=== PATIENT | male | born 1985 | race Two or more races ===

== ENCOUNTER 2024-09-19 14:48 | Emergency (ER) | payer SELFPAY ==
[2024-09-19 19:17] LABS: BASOPHILS ABSOLUTE AUTO 0.03 K/uL (0.00-0.10); BASOPHILS PERCENT AUTO 0.4 % (0.1-1.3); EOSINOPHILS ABSOLUTE AUTO 0.08 K/uL (0.00-0.40); EOSINOPHILS PERCENT AUTO 1.1 % (0.0-5.4); HEMATOCRIT 38.7 % (38.4-49.7); HEMOGLOBIN 14.1 g/dL (12.9-16.9); IMMATURE GRAN PERCENT AUTO 0.3 % (0.0-0.7); LYMPHOCYTES PERCENT AUTO 27.2 % (11.4-47.7); MEAN CORPUSCULAR HEMOGLOBIN 30.4 pg (31.6-35.5); MEAN CORPUSCULAR HGB CONC 36.4 g/dL (31.6-35.5); MEAN CORPUSCULAR VOLUME 83.4 fL (81.4-99.0); MONOCYTES ABSOLUTE AUTO 0.41 K/uL (0.20-0.90); MONOCYTES PERCENT AUTO 5.6 % (3.3-12.6); NEUTROPHILS ABSOLUTE AUTO 4.82 K/uL (1.0-7.6); NEUTROPHILS PERCENT AUTO 65.4 % (40.0-78.1); PLATELET COUNT,PLT 242 K/uL (130-375); RED BLOOD CELL COUNT 4.64 M/uL (4.14-5.76); WHITE BLOOD CELL COUNT,WBC 7.4 K/uL (3.2-11.0)
[2024-09-19 19:21] LABS: IMMATURE GRAN ABSOLUTE AUTO 0.02 K/uL (0.00-0.23)
[2024-09-19] MEDS: Sodium Chloride 0.9% 1,000 ML IV SCH (19:45)
[2024-09-19 19:47] LABS: A/G RATIO 0.9 (1.2-2.2); ALBUMIN 3.7 g/dL (3.4-5.0); ALKALINE PHOSPHATASE 66 U/L (46-116); BILIRUBIN TOTAL 0.7 mg/dL (0.2-1.0); BLOOD UREA NITROGEN,BUN 18 mg/dL (7-18); CALCIUM 8.3 mg/dL (8.5-10.1); CARBON DIOXIDE,CO2 25 mmol/L (21-32); CHLORIDE,CL 103 mmol/L (100-108); CREATININE 0.9 mg/dL (0.8-1.3); EST CRCL DRUG DOSING (CG) 92.27 mL/min; ESTIMATED GFR 111 mL/min (>60); GLUCOSE RANDOM 131 mg/dL (74-106); POTASSIUM,K 3.9 mmol/L (3.6-5.2); PROTEIN TOTAL,TP 7.7 g/dL (6.4-8.2); SODIUM,NA 140 mmol/L (140-148); TSH ULTRASENSITIVE 4.336 uIU/mL (0.358-3.740)
[2024-09-19 20:03] LABS: C-REACTIVE PROTEIN < 0.50 mg/dL (<0.50)
[2024-09-19 20:45] LABS: ALANINE AMINOTRANSFERASE,ALT 74 U/L (12-78); ASPARTATE AMNIOTRANSFERASE,AST 32 U/L (15-37)
[2024-09-19] MEDS: Sodium Chloride 0.9% 80 ML IV SCH (21:21)
[2024-09-19] MEDS: Iopamidol 612 MG/ML 100 ML Bottle IV SCH (21:21)
[2024-09-19] MEDS: Alum Hydrox/Mag Hydrox/Simeth 15 ML, Lidocaine 2% 15 ML PO ONE (21:55)
[2024-09-19] MEDS: Acetaminophen 500 MG Tab PO ONE (22:24)
[2024-09-19] MEDS: diphenhydrAMINE 25 MG Cap PO ONE (22:25)
== END 2024-09-19 22:30 | disposition home or self-care (01) ==
LOC: JP.ED 14:48
DX: K21.9 Gastro-esophageal reflux disease without esophagitis (principal); E03.9 Hypothyroidism, unspecified
CPT/HCPCS: 36415; 74177; 80053; 83605; 83690; 84443; 85025; 86140; 96360; 99283; 99284-25; A9270-GY; J7030; Q9967

== ENCOUNTER 2025-04-05 18:46 | Emergency (ER) | payer OTHER | END 2025-04-05 21:45 | disposition home or self-care (01) | LOC: JP.ED 18:46 | DX: S59.902A Unspecified injury of left elbow, initial encounter (principal); X50.1XXA Overexertion from prolonged static or awkward postures, initial encounter; Y93.66 Activity, soccer | CPT/HCPCS: 73080; 99283; A9270 ==

== ENCOUNTER 2025-06-26 09:20 | Emergency (ER) | payer SELFPAY ==
[2025-06-26 10:47] LABS: BASOPHILS ABSOLUTE AUTO 0.03 K/uL (0.00-0.10); BASOPHILS PERCENT AUTO 0.5 % (0.1-1.3); EOSINOPHILS ABSOLUTE AUTO 0.16 K/uL (0.00-0.40); EOSINOPHILS PERCENT AUTO 2.6 % (0.0-5.4); IMMATURE GRAN ABSOLUTE AUTO 0.03 K/uL (0.00-0.23); IMMATURE GRAN PERCENT AUTO 0.5 % (0.0-0.7); LYMPHOCYTES ABSOLUTE AUTO 2.44 K/uL (0.8-3.3); LYMPHOCYTES PERCENT AUTO 39.9 % (11.4-47.7); MONOCYTES ABSOLUTE AUTO 0.41 K/uL (0.20-0.90); MONOCYTES PERCENT AUTO 6.7 % (3.3-12.6); NEUTROPHILS ABSOLUTE AUTO 3.05 K/uL (1.0-7.6); NEUTROPHILS PERCENT AUTO 49.8 % (40.0-78.1); PLATELET COUNT,PLT 242 K/uL (130-375); RED BLOOD CELL COUNT 4.74 M/uL (4.14-5.76); WHITE BLOOD CELL COUNT,WBC 6.1 K/uL (3.2-11.0)
[2025-06-26] MEDS: diphenhydrAMINE 50 MG/ML SDV IVPUSH ONE (11:24)
[2025-06-26] MEDS: Sodium Chloride 0.9% 10 ML Syringe FLUSH PRN (11:48)
[2025-06-26] MEDS: Iopamidol 612 MG/ML 100 ML Bottle IV SCH (11:48)
[2025-06-26] MEDS: Docusate Sodium Liquid 50 MG/5 ML ML 473 ML Bottle ONE (11:54)
[2025-06-26] MEDS: Ciprofloxacin 0.3% Ophth Soln 2.5 ML Bottle EARRT ONE (14:53)
[2025-06-26] MEDS: Dexamethasone 0.1% Ophth Soln 5 ML Bottle EARRT ONE (14:53)
== END 2025-06-26 15:00 | disposition home or self-care (01) ==
LOC: JP.ED 09:20
DX: H66.001 Acute suppurative otitis media without spontaneous rupture of ear drum, right ear (principal); H60.21 Malignant otitis externa, right ear; H70.91 Unspecified mastoiditis, right ear; Z79.899 Other long term (current) drug therapy
CPT/HCPCS: 36415; 70481; 85025; 86140; 96365; 96375; 99283; A9270; J0696; J1200; Q9967